=== PATIENT | male | born 1945 | race Caucasian/White ===

== ENCOUNTER 2024-08-20 18:24 | Emergency (ER) | payer MEDICARE, SELFPAY ==
[2024-08-20 18:25] VITALS: BMI 22.8
[2024-08-20 18:50] VITALS: BP 153/80; PULSE 68; RESP 18; TEMP 36.9; O2SAT 97
--- NOTE | 2024-08-20 18:52 | XR_ITS ---
Examination: Fingers, left hand second digit 3 views Technique: AP, oblique, lateral views left hand second digit 3 views. Exam date and time: August 20, 2024 1845 hours INDICATIONS: Injury to the second digit today, pain and swelling FINDINGS: No acute fracture No dislocation No foreign body IMPRESSION: No acute fracture. No opaque foreign body
--- NOTE | 2024-08-20 18:52 | PD.EDWOUND ---
ED Wound/Laceration-RME/HPI General Chief Complaint: Wound/Laceration Stated Complaint: LEFT HAND LACERATION Time Seen by Provider: 08/20/24 18:25 Source: patient, RN notes reviewed and old records reviewed Arrival date/time: 08/20/24 18:24 Mode of arrival: ambulatory Limitations: no limitations RME / HPI RME / HPI narrative: 79yom presents to ED for finger laceration that occurred today. Patient reports cutting left index finger with a chainsaw. Patient was able to apply pressure and bandage prior to ED arrival. No limited ROM or numbness/tingling reported. Unknown last tetanus vacc. Related Data Previous Rx's ?Medication ?Instructions ?Recorded apixaban 5 mg tablet 5 mg PO BID 30 days #60 tabs 10/27/23 atorvastatin 40 mg tablet 40 mg PO HS 30 days #30 tabs 10/27/23 cephalexin 500 mg capsule 500 mg PO TID 7 days #21 caps 08/20/24 Allergies Allergy/AdvReac Type Severity Reaction Status Date / Time ciprofloxacin (From Cipro) Allergy Verified 08/20/24 18:24 Review of Systems Review of Systems Systems Reviewed: All systems reviewed, normal except as documented Musculoskeletal Musculoskeletal: Denies arthralgias, Denies limited range of motion, Denies numbness and Denies tingling Integumentary/Breasts Comments: Reports laceration Neurologic Neurologic: Denies numbness and Denies tingling Past Medical History Past Medical History NEUROLOGIC: Positive Cerebrovascular Accident GENITOURINARY: Positive Benign Prostatic Hyperplasia OTHER HISTORY: Positive Cancer Social History SMOKING STATUS: Never smoker SUBSTANCE USE: does not use ALCOHOL: Current (Social) ED Exam General Limitations: Present no limitations General appearance: Present alert and in no apparent distress Head Head exam: Present atraumatic and normocephalic Eye Eye exam: Present normal appearance, PERRL and EOMI ENT ENT exam: Present normal exam and mucous membranes moist Neck Neck exam: Present normal inspection and full ROM Chest Chest inspection: Present normal inspection and symmetric chest wall rise Respiratory Respiratory exam: Present normal lung sounds bilaterally; Absent respiratory distress Cardiovascular Cardiovascular exam: Present regular rate and normal rhythm Extremities Exam Extremities exam: Present other (FROM left index finger. <2s cap refill, sensation intact distally) Neurological Exam Neurological exam: Present alert and oriented X3 Psychiatric Psychiatric exam: Present normal affect and normal mood Skin Skin exam: Present other (4cm laceration to dorsal aspect of base of left index finger. Moderate gaping, no active bleeding.) Course Quality Measures none Orders Category Date Time Status XR finger LT min 2V Stat Exams 08/20/24 18:52 Completed Lidocaine 1% 20 ml [Xylocaine 1% 20 ML] Med 08/20/24 18:52 Discontinued 10 ml INFL X1 ONE TET,DIP/PERT AC (Adult)-Tdap [Boostrix Adult (Tdap) Med 08/20/24 18:52 Discontinued Vacc] 0.5 ml IMI .ONCE ONE Vital Signs Vital signs: Vital Signs Temperature 98.5 F 08/20/24 18:50 Pulse Rate 68 08/20/24 18:50 Respiratory Rate 18 08/20/24 18:50 Blood Pressure 153/80 H 08/20/24 18:50 Pulse Oximetry (%) 97 08/20/24 18:50 Oxygen Delivery Method Room Air 08/20/24 18:50 Procedures -ED Laceration Laceration 1: Site: hand (index finger) Side (If applicable): left Size (cm): 4 Description: linear Depth: simple, single layer Local Anesthetic: lidocaine 1% Amount of anesthesia used (mL): 4 Pre-repair: irrigated extensively (hibiclens, saline for cleaning) Skin layer closed with: nylon Size (cm): 5-0 Number of sutures: 9 Technique: simple, interrupted Wound / Laceration MDM Narrative MDM Narrative:: 79yom presents to ED for finger laceration that occurred today. Patient reports cutting left index finger with a chainsaw. Patient was able to apply pressure and bandage prior to ED arrival. No limited ROM or numbness/tingling reported. Unknown last tetanus vacc. Laceration repaired with sutures. Patient tolerated procedure well, condition improved. Home wound care discussed. Tetanus vac updated. Instructed to return in 8-12 days for suture removal. Stable for discharge, RTED precautions given. Patient data External records reviewed:: [facility] previous records (Admit 10/24/2023 for CVA) Clinical information provided by:: patient Social determinants that could affect healthcare access:: none Patient has the following chronic illnesses:: CVA, BPH How is presenting disease/condition affected by chronic disease/condition?: exacerbated by (Takes apixaban) Evaluation data The following diagnostics were reviewed and interpreted by me:: radiology exam(s) Lab and/or radiology exams considered but not ordered:: None Interpretation Summary: Finger x-rays: no fracture per my read Medications / Prescriptions Medications or Prescriptions considered but not ordered:: None Medication administrations:: Medication Administration History Discontinued Medications Diphtheria/Tetanus/Acell Pertussis (Diphth,Pertuss(Acell),Tet Vac 0.5 Ml Syr- Adult) 0.5 ml IMi .ONCE ONE Stop: 08/20/24 18:53 Last Admin: 08/20/24 20:09 Dose: 0.5 ml Documented By: EDWIN Lidocaine HCl (Lidocaine Hcl 1% 20 Ml Vial) 10 ml INFL X1 ONE Stop: 08/20/24 18:53 Last Admin: 08/20/24 20:39 Dose: 10 ml Documented By: KF Above medications administered in ED Consultations Consultation(s) initiated? (list below): No Diagnosis Wound Differential Diagnosis: laceration, abrasion, avulsion of skin and other (Open fracture, tendon injury, foreign body) Most likely diagnosis given after review of the tests above:: Finger laceration Admission Indicated Admission indicated?: not indicated Admission Request Was there a request for admission?: No Disposition Plan Disposition Plan: Discharge Discharge Attestation Discharge Attestation: The patient and all family members were given an opportunity to ask questions and understood the discharge instructions. Discharge instructions specifically effects, indications for sooner follow up or return to the emergency department, and the expected course of current diagnosis. Patient condition: Stable Discharge Plan Plan Patient Disposition: HOME (Self Care) Patient condition on transfer: Stable Prescriptions/Referrals Prescriptions/Med Rec: New cephalexin 500 mg capsule 500 mg PO TID 7 Days Qty: 21 0RF No Action apixaban 5 mg tablet 5 mg PO BID 30 Days Qty: 60 13RF atorvastatin 40 mg tablet 40 mg PO HS 30 Days Qty: 30 13RF Referrals: No Primary/Family,Physician [Primary Care Provider] - In 1 week Problem List Clinical Impression: Laceration of left index finger Patient/Caregiver Discharge Instructions Education Materials: ED Laceration, Hand: All Closures Additional Instructions: Return to ER in 8-12 days for suture removal. Print Language: Greek Stand Alone Forms: Lizbeth Award Info., Patient Portal Info Letter PA/ANJU Supervising Physician PA/ANJU Supervising Physician: Jeniffer
[2024-08-20] MEDS: DIPHTH,PERTUSS(ACELL),TET VAC 0.5 ML SYR- ADULT IMi (20:09)
[2024-08-20] MEDS: LIDOCAINE HCL 1% 20 ML VIAL 10 ML INFL (20:39)
== END 2024-08-20 22:06 | disposition home or self-care (01) ==
PROVIDERS: Emergency Provider Emergency Medicine
DX: S61.211A Laceration without foreign body of left index finger without damage to nail, initial encounter (principal); W29.3XXA Contact with powered garden and outdoor hand tools and machinery, initial encounter; Z23 Encounter for immunization
CPT/HCPCS: 12002; 73140; 90471; 90715; 99283; J3490

== ENCOUNTER 2024-08-30 09:17 | Emergency (ER) | payer MEDICARE, SELFPAY ==
[2024-08-30 09:18] VITALS: BMI 22.8
--- NOTE | 2024-08-30 09:26 | EDNOTE_ITS ---
Upper Extremity Injury RME/HPI General Chief Complaint: Extremity Injury, Upper Stated Complaint: STITCH REMOVAL L) INDEX FINGER Time Seen by Provider: 08/30/24 09:25 Source: patient Arrival date/time: 08/30/24 09:17 79-year-old male with a history of hyperlipidemia presents to the emergency room for suture removal. Patient had 9 sutures placed in his left index finger after a laceration that occurred while using a chainsaw 9 days ago. Mode of arrival: ambulatory Limitations: no limitations Related Data Previous Rx's ?Medication ?Instructions ?Recorded apixaban 5 mg tablet 5 mg PO BID 30 days #60 tabs 10/27/23 atorvastatin 40 mg tablet 40 mg PO HS 30 days #30 tabs 10/27/23 Allergies Allergy/AdvReac Type Severity Reaction Status Date / Time ciprofloxacin (From Cipro) Allergy Verified 08/30/24 09:21 Review of Systems Review of Systems Systems Reviewed: All systems reviewed, normal except as documented Constitutional Constitutional: Reports system reviewed and no additional complaints, except as documented, Denies fatigue, Denies fever(s), Denies headache(s) and Denies weakness Eyes Eyes: Reports system reviewed and no additional complaints, except as documented, Denies blurry vision and Denies change in vision ENT Ears, Nose, Mouth, and Throat: Reports system reviewed and no additional complaints, except as documented, Denies otalgia, Denies headache(s), Denies nasal congestion, Denies throat swelling and Denies vertigo Cardiovascular Cardiovascular: Reports system reviewed and no additional complaints, except as documented, Denies chest pain, Denies dyspnea and Denies dyspnea on exertion Respiratory Respiratory: Reports system reviewed and no additional complaints, except as documented, Denies chest congestion, Denies cough, Denies dyspnea, Denies dyspnea on exertion and Denies wheezing Gastrointestinal Gastrointestinal: Reports system reviewed and no additional complaints, except as documented, Denies abdominal pain, Denies cramping, Denies nausea and Denies vomiting Genitourinary Genitourinary: Reports system reviewed and no additional complaints, except as documented, Denies dysuria and Denies hematuria Musculoskeletal Musculoskeletal: Reports system reviewed and no additional complaints, except as documented and Denies back pain Integumentary/Breasts Skin/Breast: Reports system reviewed and no additional complaints, except as documented and Denies wounds Neurologic Neurologic: Reports system reviewed and no additional complaints, except as documented, Denies confusion, Denies headache(s), Denies lack of coordination, Denies vertigo and Denies weakness Psychiatric Psychiatric: Reports system reviewed and no additional complaints, except as documented, Denies anxiety, Denies confusion, Denies depression, Denies paranoia, Denies suicidal ideation and Denies tactile hallucinations Endocrine Endocrine: Reports system reviewed and no additional complaints, except as documented and Denies fatigue Hematologic/Lymphatic Hematologic/Lymphatic: Reports system reviewed and no additional complaints, except as documented and Denies lymphadenopathy Allergic/Immunologic Allergic/Immunologic: Reports system reviewed and no additional complaints, except as documented, Denies throat swelling, Denies urticaria and Denies wheezing Past Medical History Past Medical History NEUROLOGIC: Positive Cerebrovascular Accident CARDIAC: Negative Congestive Heart Failure RESPIRATORY: Negative Chronic Obstructive Pulmonary Disease (COPD) GENITOURINARY: Positive Benign Prostatic Hyperplasia; Negative Renal Disease ENDOCRINE: Negative Diabetes Mellitus Type 1 or Diabetes Mellitus Type 2 OTHER HISTORY: Positive Cancer Social History SMOKING STATUS: Never smoker SUBSTANCE USE: does not use ED Exam General Limitations: Present no limitations General appearance: Present alert and in no apparent distress Head Head exam: Present atraumatic Eye Eye exam: Present normal appearance, PERRL and EOMI ENT ENT exam: Present normal exam, normal oropharynx and mucous membranes moist Neck Neck exam: Present normal inspection, full ROM and trachea midline Chest Chest inspection: Present normal inspection and symmetric chest wall rise Respiratory Respiratory exam: Present normal lung sounds bilaterally Cardiovascular Cardiovascular exam: Present regular rate, normal rhythm and normal heart sounds Abdominal Exam Abdominal exam: Present soft and normal bowel sounds Extremities Exam Extremities exam: Present normal inspection and full ROM Back Exam Back exam: Present normal inspection and full ROM Neurological Exam Neurological exam: Present alert, oriented X3 and CN II-XII intact Psychiatric Psychiatric exam: Present normal affect and normal mood Skin Skin exam: Present warm, dry, intact and normal color Course Quality Measures none Vital Signs Vital signs: Vital Signs Temperature 97.6 F 08/30/24 09:28 Pulse Rate 71 08/30/24 09:28 Respiratory Rate 16 08/30/24 09:28 Blood Pressure 158/93 H 08/30/24 09:28 Pulse Oximetry (%) 97 08/30/24 09:28 Oxygen Delivery Method Room Air 08/30/24 09:28 O2 saturation within normal limits Extremity Injury MDM Narrative MDM Narrative:: 79-year-old male with a history of hyperlipidemia presents to the emergency room for suture removal. Patient had 9 sutures placed in his left index finger after a laceration that occurred while using a chainsaw 9 days ago. Patient is hemodynamically stable and in no apparent distress Physical examination shows a closed and approximated wound with no signs or symptoms of any infection. There is no redness there is no warmth to the touch and there is a scab across the wound. All 9 sutures were removed with no complications Patient was discharged and educated to follow-up with primary care provider in the next 24 to 48 hours and return to the emergency room for any evidence of worsening signs or symptoms Patient data External records reviewed:: [facility] previous records Clinical information provided by:: patient Social determinants that could affect healthcare access:: none Patient has the following chronic illnesses:: No chronic illness How is presenting disease/condition affected by chronic disease/condition?: no chronic disease Evaluation data The following diagnostics were reviewed and interpreted by me:: lab results and radiology exam(s) Lab and/or radiology exams considered but not ordered:: Labs and radiology exams considered and ordered Interpretation Summary: N/A Medications / Prescriptions Medications or Prescriptions considered but not ordered:: No medication given Medication administrations:: No medication given Consultations Consultation(s) initiated? (list below): No Diagnosis Upper Extremity Injury Differential Diagnosis: other (Suture removal/infected suture removal) Most likely diagnosis given after review of the tests above:: Suture removal Admission Indicated Admission indicated?: not indicated Admission Request Was there a request for admission?: No Disposition Plan Disposition Plan: Discharge Discharge Attestation Discharge Attestation: The patient and all family members were given an opportunity to ask questions and understood the discharge instructions. Discharge instructions specifically effects, indications for sooner follow up or return to the emergency department, and the expected course of current diagnosis. Patient condition: Stable Discharge Plan Plan Patient Disposition: HOME (Self Care) Disposition Comment: Stable Prescriptions/Referrals Prescriptions/Med Rec: No Action apixaban 5 mg tablet 5 mg PO BID 30 Days Qty: 60 13RF atorvastatin 40 mg tablet 40 mg PO HS 30 Days Qty: 30 13RF Problem List Clinical Impression: Encounter for removal of sutures Patient/Caregiver Discharge Instructions Education Materials: ED Stitches/Staple Removal No ... Additional Instructions: For any evidence of worsening signs or symptoms return emergency room immediately Print Language: Albanian Stand Alone Forms: Lizbeth Award Info., Patient Portal Info Letter PA/AIR POLLUTION CONTROL ENGINEER Supervising Physician PA/AIR POLLUTION CONTROL ENGINEER Supervising Physician: Dr. Nelson
[2024-08-30 09:28] VITALS: BP 158/93; PULSE 71; RESP 16; TEMP 36.4; O2SAT 97
== END 2024-08-30 12:34 | disposition home or self-care (01) ==
LOC: SERX 09:37
PROVIDERS: Emergency Provider Emergency Medicine
DX: Z48.02 Encounter for removal of sutures (principal); E78.5 Hyperlipidemia, unspecified
CPT/HCPCS: 99282